=== PATIENT | male | born 1975 | race American Indian/Alaskan Native ===

== ENCOUNTER 2022-05-17 10:52 | Emergency (ER) | payer OTHER ==
[2022-05-17] MEDS ORDERED: dexAMETHasone 4 MG/ML VIAL IM ONE (12:40)
[2022-05-17] MEDS ORDERED: IBUPROFEN 800 MG TAB PO ONE (12:40)
--- NOTE | 2022-05-17 12:41 | Emergency Department Report ---
ED Fall HPI - General Chief Complaint: Fall Stated Complaint: NECK/BACK/LEFT ARM PAIN Time Seen by Provider: 05/17/22 12:36 Source: patient Mode of arrival: Ambulatory - History of Present Illness Initial Comments: 46 YO COMES TO ER 5 DAYS P FALL DOWN 6 STEPS DOG TRIPPED HIM NO LOC CO R SHOULDER/NECK PAIN WORSE WITH MOVEMENT NEURO INTACT MD Complaint: fall -: Sudden Fall From: standing When Fall Occurred: other Fall Witnessed: yes, by family Place Fall Occurred: home Loss of Consciousness: none Prolonged Down Time?: no Symptoms Prior to Fall: none Severity scale (0 -10): 4 Quality: crushing Context: tripped/slipped Associated Symptoms: denies - Related Data Previous Rx's Medication Instructions Recorded Last Taken Type Cyclobenzaprine [Flexeril] 10 mg PO TID PRN #10 tablet 05/17/22 Unknown Rx Ibuprofen [Motrin] 800 mg PO Q8HR PRN #30 tablet 05/17/22 Unknown Rx Allergies Allergy/AdvReac Type Severity Reaction Status Date / Time No Known Allergies Allergy Verified 05/17/22 12:37 ED Review of Systems ROS: Stated complaint: NECK/BACK/LEFT ARM PAIN Other details as noted in HPI Comment: All other systems reviewed and negative ED Past Medical Hx - Past Medical History Previous Medical History?: No - Surgical History Past Surgical History?: No - Family History Family history: no significant - Social History Smoking Status: Never Smoker Substance Use Type: None - Medications Home Medications: Home Medications Medication Instructions Recorded Confirmed Last Taken Type Cyclobenzaprine [Flexeril] 10 mg PO TID PRN #10 tablet 05/17/22 Unknown Rx Ibuprofen [Motrin] 800 mg PO Q8HR PRN #30 tablet 05/17/22 Unknown Rx ED Physical Exam - General Limitations: No Limitations General appearance: alert, in no apparent distress - Head Head exam: Present: atraumatic, normocephalic - Eye Eye exam: Present: normal appearance - ENT ENT exam: Present: mucous membranes moist - Neck Neck exam: Present: normal inspection - Respiratory Respiratory exam: Present: normal lung sounds bilaterally. Absent: respiratory distress - Cardiovascular Cardiovascular Exam: Present: regular rate, normal rhythm. Absent: systolic murmur, diastolic murmur, rubs, gallop - GI/Abdominal GI/Abdominal exam: Present: soft, normal bowel sounds - Rectal Rectal exam: Present: deferred - Extremities Exam Extremities exam: Present: normal inspection - Back Exam Back exam: Present: normal inspection - Neurological Exam Neurological exam: Present: alert, oriented X3 - Psychiatric Psychiatric exam: Present: normal affect, normal mood - Skin Skin exam: Present: warm, dry, intact, normal color. Absent: rash ED Course Vital Signs 05/17/22 12:37 Temperature 98.5 F Pulse Rate 87 Respiratory 16 Rate O2 Sat by Pulse 95 Oximetry ED Medical Decision Making - Medical Decision Making Vital Signs 05/17/22 12:37 Temperature 98.5 F Pulse Rate 87 Respiratory 16 Rate O2 Sat by Pulse 95 Oximetry DECADRON AND MOTRIN IN ER DC HOME WITH DC PLAN OF CARE INCLUDING DIET, MEDS, ACTIVITY AND FOLLOW UP HE VERBALIZES UNDERSTANDING OF PLAN OF CARE - Differential Diagnosis MUSCULOSKELETAL PAIN Critical care attestation.: If time is entered above; I have spent that time in minutes in the direct care of this critically ill patient, excluding procedure time. ED Disposition Clinical Impression: Musculoskeletal pain Fall Qualifiers: Encounter type: initial encounter Qualified Code(s): W19.XXXA - Unspecified fall, initial encounter Disposition: HOME / SELF CARE / HOMELESS Is pt being admited?: No Does the pt Need Aspirin: No Condition: Stable Instructions: Musculoskeletal Pain Additional Instructions: MEDS ORDERED FOLLOW UP WITH PCP NEXT WEEK IF STILL SORE WARM BATHS Prescriptions: Cyclobenzaprine [Flexeril] 10 mg PO TID PRN #10 tablet PRN Reason: Muscle Spasm Ibuprofen [Motrin] 800 mg PO Q8HR PRN #30 tablet PRN Reason: Pain, Moderate (4-6) Referrals: KETAN LUND MD [Primary Care Provider] - 3-5 Days Forms: Work/School Release Form(ED) Time of Disposition: 13:01
[2022-05-17 13:14] VITALS: BP 140/90
== END 2022-05-17 13:14 | disposition home or self-care (01) ==
LOC: ED 10:52
DX: M79.10 Myalgia, unspecified site (principal); W19.XXXA Unspecified fall, initial encounter; Y93.89 Activity, other specified; Y92.89 Other specified places as the place of occurrence of the external cause; Y99.8 Other external cause status
CPT/HCPCS: 96372; 99282; J1100